=== PATIENT | male | born 1955 | race Caucasian/White ===

== ENCOUNTER 2019-01-29 06:44 | Day surgery (SDC) | payer BC, OTHER ==
[~2019-01-29 06:44] MED LIST: Lactated Ringers 1,000 ML IV SCH
[2019-01-29] MEDS ORDERED: Lidocaine 2% 5 ML SDV ONE (07:34)
[2019-01-29] MEDS ORDERED: Propofol 200 MG/20 ML SDV ONE (07:34)
[2019-01-29] MEDS ORDERED: fentaNYL 100 MCG/2 ML SDV ONE (07:34)
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
[2019-01-29] MEDS ORDERED: Lactated Ringers 1,000 ML IV SCH (08:45)
--- NOTE | 2019-01-29 08:47 | PCM.OPNOTE ---
- General Post-Op/Procedure Note Date of Surgery/Procedure: 01/29/19 Operative Procedure(s): Colonoscopy with snare, distal sigmoid polypectomy and cold mid sigmoid and distal rectal polypectomies Pre Op Diagnosis: Family history of colon cancer. Post-Op Diagnosis: Mid and distal sigmoid and rectal polyps Anesthesia Technique: MAC (ASA II) Primary Surgeon: Anshu Lozano Condition: Good Free Text/Narrative:: DICTATION 220695 CPT CODE [id number]
--- NOTE | 2019-01-29 09:27 | PCM.POSTAN ---
POST ANESTHESIA ASSESSMENT - MENTAL STATUS Mental Status: Alert, Oriented - VITAL SIGNS Vital Signs: Last Vital Signs Temp 97.2 F 01/29/19 06:50 Pulse 53 L 01/29/19 09:00 Resp 13 01/29/19 09:00 BP 103/70 01/29/19 09:00 Pulse Ox 99 01/29/19 09:00 - RESPIRATORY Respiratory Status: Respiratory Rate WNL, Airway Patent, O2 Saturation Stable - CARDIOVASCULAR CV Status: Pulse Rate WNL, Blood Pressure Stable - GASTROINTESTINAL GI Status: No Symptoms - POST OP HYDRATION Hydration Status: Adequate & Stable
--- NOTE | 2019-01-29 09:28 | PCM48HPAN ---
Post Anesthesia Note - EVALUATION WITHIN 48HRS OF ANESTHETIC Vital Signs in Normal Range: Yes Patient Participated in Evaluation: Yes Respiratory Function Stable: Yes Airway Patent: Yes Cardiovascular Function Stable: Yes Hydration Status Stable: Yes Pain Control Satisfactory: Yes Nausea and Vomiting Control Satisfactory: Yes Mental Status Recovered: Yes Vital Signs: Last Vital Signs Temp 97.2 F 01/29/19 06:50 Pulse 53 L 01/29/19 09:00 Resp 13 01/29/19 09:00 BP 103/70 01/29/19 09:00 Pulse Ox 99 01/29/19 09:00
--- NOTE | 2019-01-29 13:03 | OR ---
SURGEON: Anshu Lozano M.D. DATE OF PROCEDURE: 01/29/2019 OPERATIONS PERFORMED: Colonoscopy with snare distal sigmoid polypectomy and cold mid sigmoid and rectal polypectomy. PRIMARY SURGEON: Anshu Lozano M.D. ANESTHESIA: MAC. ASA CLASSIFICATION: II. PREOPERATIVE DIAGNOSIS: Family history of colon cancer. POSTOPERATIVE DIAGNOSIS: Mid and distal sigmoid polyps and rectal polyp. DESCRIPTION OF PROCEDURE: The patient was taken to the endoscopy room and positioned on the endoscopy table in the left lateral decubitus position. Time-out was called for appropriate identification of the patient and procedure. Monitored anesthesia care was provided. The colonoscope was inserted into the rectum and advanced with minimal difficulty to the cecum. The colonoscope was retroflexed to visualize the ascending colon from below, then straightened and slowly withdrawn. The cecum, ascending colon, hepatic flexure, transverse colon, splenic flexure, and descending colon showed no tumors, polyps, diverticula, or angiodysplastic changes. Two small polyps were encountered in close proximity in the mid sigmoid colon and removed with the cold biopsy forceps. A third polyp was encountered in the distal sigmoid and removed and recovered with a snare electrocautery. The colonoscope was withdrawn to remove the polyp, then reinserted to the polypectomy site which was dry. The colonoscope was then further withdrawn to the distal rectum where another polyp was encountered and again removed with the cold biopsy forceps. The colonoscope was retroflexed to visualize the anal orifice from above. No tumors or polyps were seen distally and there were no acute hemorrhoidal changes. The colonoscope was then straightened, the rectum aspirated, and the colonoscope removed. The patient tolerated the procedure well and was taken to recovery room in stable condition. CHELY JERNIGAN /[id number] FRANCHESCA
== END 2019-01-29 09:28 | disposition home or self-care (01) ==
LOC: MW.SDS 06:44
PROVIDERS: ATTEND Surgery
DX: Z12.11 Encounter for screening for malignant neoplasm of colon (principal); D12.5 Benign neoplasm of sigmoid colon; K62.1 Rectal polyp; Z80.0 Family history of malignant neoplasm of digestive organs; Z79.899 Other long term (current) drug therapy; Z87.891 Personal history of nicotine dependence
CPT/HCPCS: 45380; 45385; J2001; J2704; J3010; J7120; 88305